=== PATIENT | female | born 1945 | race Caucasian/White ===

== ENCOUNTER → 2017-10-15 | Outpatient (CLI) | payer MEDICARE, OTHER ==
[~2017-10-15] MED LIST: AMLO-99 PO; ASPI-1471 PO; BECL8.7A6 IH; CALC600T72 PO; CALC625T57 PO; CET10 PO; CHOL200038 PO; CITA-156 PO; DULO60CA51 PO; DYA PO; FLAX100027 PO; GABA-503 PO; GLIM1TAB25 PO; GLUC500C29 PO; METF-411 PO; MOMR; MON10 PO; MULT1CAP41 PO; OMEG-11 PO; OMEG500C5 PO; OMEP40CA48 PO; OXYGENHOME INH; POT10 PO; PRAV20TA66 PO; PREOD OD; RABE20TA33 PO; TRAZ50 PO; UBID100C33 PO; VITA1CAP8 PO; VITA200C39 PO; ZINC50TA3 PO; [UNRECOGNIZED DRUG - CODE] PO; [UNRECOGNIZED DRUG - CODE] TP; [UNRECOGNIZED DRUG - OTHER]
--- NOTE | 2017-10-15 10:50 | RADIOLOGY IMAGING REPORT ---
FACILITY: [facility] PATIENT NAME: Ragini Moseley : 1945 MR: [id number] V: [id number] EXAM DATE: ORDERING PHYSICIAN: TOM MIRANDA TECHNOLOGIST: Location: [facility] Patient: Ragini Moseley : 1945 Visit/Account:[id number] Date of Sevice: 10/15/2017 DEXA Scan Clinical history: Screening. Comparison: DEXA scan from 09/04/2002. LUMBAR SPINE: The bone mineral density (BMD) measured from L1-L4 correlates with a Z-score of 2.8 and a T-score of 1.6 which is Normal as defined by the World Health Organization. The corresponding risk of fracture in the lumbar spine is Not increased compared with a young adult reference population. This value mena s increased by 9.1 % since the prior study. More than 5% change is considered significant. HIP: Bone mineral density (BMD) measured in the LEFT total hip region correlates with a Z-score -0.1 and a T-score of -1.3 which is osteopenia as defined by the World Health Organization. The corresponding risk of fracture in the hip is 2-3 times increased compared to a young adult reference population. Th is value has decreased by 26.2 % since the prior study. More than 5% change is considered significan t. T score left femoral neck -1.5 Bone mineral density (BMD) measured in the Femoral Neck region measures 0.825 g/cm?. IMPRESSION: 1. Lumbar spine: Normal. There has been 9.1% increase in the bone mineral density since the previou s exam. 2. Left Total Hip: Osteopenia. There has been 26.2% decrease in the bone mineral density since the previous exam. 3. Femoral Neck: Bone Mineral Density is 0.825 g/cm? The next DEXA scan of this patient should include the following sites: L1-L4 and the left hip. FRAX? WHO Fracture Risk Assessment Tool link: <http://www.shef.ac.uk/FRAX/tool.jsp?locationValue=9> PLEASE NOTE: 1) The World Health Organization defines low BMD as follows: T-score Normal > -1 Osteopenia < -1 and > -2.5 Osteoporosis < -2.5 without fractures Established osteoporosis < -2.5 with fractures 2) In general, you may wish to consider: Diagnosis Treatment Follow-up DEXA Normal BMD Prevention 2-3 years Osteopenia Prevention/therapy 1-2 years Osteoporosis Therapy Yearly 3) Fracture risk estimated from the T-score is more accurate for vertebral fractures (often spontane ous) than for hip fractures. Report Dictated By: Rhea Pimentel MD at 10/15/2017 10:39 AM Report E-Signed By: Rhea Pimentel MD at 10/15/2017 10:47 AM WSN:[email or web address]
== END ==
LOC: RAD 09:29
PROVIDERS: ATTEND Family Medicine
DX: Z13.820 Encounter for screening for osteoporosis (principal); M85.88 Other specified disorders of bone density and structure, other site
CPT/HCPCS: 77080

== ENCOUNTER → 2018-01-10 | Outpatient (CLI) | payer MEDICARE, OTHER ==
[~2018-01-10] MED LIST changes: +AMLO-113 PO; -AMLO-99 PO; -METF-411 PO; +METF-450 PO
--- NOTE | 2018-01-11 09:04 | RADIOLOGY IMAGING REPORT ---
FACILITY: [facility] PATIENT NAME: PAYAL FALK : [id number] MR: [id number] V: [id number] EXAM DATE: [id number] ORDERING PHYSICIAN: TOM MIRANDA TECHNOLOGIST: Tianna Vernon PROCEDURE:BILATERAL DIGITAL SCREENING MAMMOGRAM WITH CAD ASSISTED INTERPRETATION & 3D TOMOSYNTHESIS COMPARISON:Prior mammograms 01/07/17, 01/07/16, 01/02/15, 12/28/13, 12/20/12, 12/18/11. INDICATIONS:screening FINDINGS: A small amount of fibroglandular tissue is seen throughout the breasts. The parenchymal pattern has remained stable allowing for difference in mammographic technique & patient positioning. There is no evidence of malignant appearing mass, malignant appearing calcifications or other secondary sign of malignancy in either breast. DIAGNOSTIC CATEGORY 1--NEGATIVE. RECOMMENDATIONS: ROUTINE MAMMOGRAM AND CLINICAL EVALUATION. IMPRESSION: BIRADS 1: Negative. No significant abnormality is seen. Dictated by: Rhea Pimentel M.D. on 01/10/2018 at 16:39 Transcribed by: MARY on 01/11/2018 at 8:05 Approved by: Rhea Pimentel M.D. on 01/11/2018 at 9:03 [facility]
== END ==
LOC: MAMO 04:18
PROVIDERS: ATTEND Family Medicine
DX: Z12.31 Encounter for screening mammogram for malignant neoplasm of breast (principal)
CPT/HCPCS: 77063; 77067

== ENCOUNTER → 2018-08-31 | Outpatient (CLI) | payer MEDICARE, OTHER ==
[~2018-08-31] MED LIST changes: -AMLO-113 PO; +AMLO-127 PO; -GABA-503 PO; +GABA-533 PO
--- NOTE | 2018-08-31 14:38 | RADIOLOGY IMAGING REPORT ---
FACILITY: [facility] [place] PATIENT NAME: Ragini Moseley : 1945 MR: [id number] V: [id number] EXAM DATE: ORDERING PHYSICIAN: TOM MIRANDA TECHNOLOGIST: Location: [facility] [place] Patient: Ragini Moseley : 1945 Visit/Account:[id number] Date of Sevice: 08/31/2018 Exam type: US GROIN History: Right hip pain rule out hernia Comparison: Findings: Multiple images of the right groin were obtained both with and without a Valsalva maneuver. There ap peared to be protruding bowel extending into the right inguinal canal , very suspicious for a hernia. . Comparison views the left groin appeared unremarkable. Incidentally noted were multiple fatty rep laced lymph nodes in the right inguinal region. IMPRESSION: 1. There appear to be protruding bowel extending to the right inguinal canal upon Valsalva maneuver highly suspicious for right inguinal hernia. Incidentally noted are multiple fatty replaced lymph no amadou in the right groin. Report Dictated By: Rhea Pimentel MD at 08/31/2018 2:32 PM Report E-Signed By: Rhea Pimentel MD at 08/31/2018 2:35 PM WSN:AB
--- NOTE | 2018-08-31 15:07 | RADIOLOGY IMAGING REPORT ---
FACILITY: [facility] PATIENT NAME: Ragini Moseley : 1945 MR: [id number] V: [id number] EXAM DATE: ORDERING PHYSICIAN: TOM MIRANDA TECHNOLOGIST: Location: [facility] Patient: Ragini Moseley : 1945 Visit/Account:[id number] Date of Sevice: 08/31/2018 Exam type: PELVIS History: Pain in right hip and groin area starting two months previously Comparison: None. Findings: There is mild narrowing of the hip joint spaces, right greater than left. There is bony bridging bet ween the L5-S1 level and the superior aspect of the iliac crests bilaterally which may be degenerativ e in nature. No gross evidence of pelvic fracture. IMPRESSION: Degenerative changes as described above. Report Dictated By: Rhea Pimentel MD at 08/31/2018 11:56 AM Report E-Signed By: Rhea Pimentel MD at 08/31/2018 3:02 PM WSN:AB
== END ==
LOC: RAD 10:27
PROVIDERS: ATTEND Family Medicine
DX: M25.551 Pain in right hip (principal)
CPT/HCPCS: 72170; 76705

== ENCOUNTER → 2018-09-07 | Outpatient (CLI) | payer MEDICARE, OTHER ==
--- NOTE | 2018-09-07 14:46 | EKG ---
FACILITY: [facility] [place] PATIENT NAME: PAYAL FALK : [id number] MR: [id number] V: [id number] EXAM DATE: ORDERING PHYSICIAN: JOSI RICHARDSON TECHNOLOGIST: EMBER Test Reason : PREOP Blood Pressure : / mmHG Vent. Rate : 076 BPM Atrial Rate : 076 BPM P-R Int : 186 ms QRS Dur : 080 ms QT Int : 404 ms P-R-T Axes : 072 061 055 degrees QTc Int : 454 ms Normal sinus rhythm Low voltage QRS Borderline ECG No previous ECGs available Referred By: Confirmed By:
[2018-09-07 14:53] LABS: PLATELET COUNT, AUTOMATED 290 K/uL (150-450)
== END ==
LOC: LAB 14:18
PROVIDERS: ATTEND Surgery
DX: E11.9 Type 2 diabetes mellitus without complications (principal)
CPT/HCPCS: 36415; 82310; 82374; 82435; 82565; 82947; 83036; 84132; 84295; 84520; 85025

== ENCOUNTER 2018-09-27 00:37 | Day surgery (SDC) | payer MEDICARE, OTHER ==
[2018-09-27] VITALS (8 sets, daily range): BP systolic 109–131; BP diastolic 59–75
[~2018-09-27] VITALS: Ht 149.9 cm; Wt 75.7 kg
[~2018-09-27 00:37] MED LIST changes: +AREDS PO; +CELE-1 PO; +CHOL500045 PO; +EYELEA INJ; +FISH1CAP15 PO; +ROSU5TAB8 PO; +TRIA10.8; +UBID1CAP94 PO
[2018-09-27] MEDS ORDERED: NORMOSOL R SOLN(*) 1000 ML BAG 1,000 ML IV PRN (06:30)
[2018-09-27] MEDS ORDERED: MIDAZOLAM 2 MG/2 ML VIAL IVP PRN (06:30)
[2018-09-27] MEDS ORDERED: LIDOCAINE/SOD BICARB 8.4% SYR ID ONE (06:30)
[2018-09-27] MEDS ORDERED: ceFAZolin(*) 2GM/D5W 50ML 50 ML IVPB ONE (06:30)
[2018-09-27] MEDS ORDERED: BUPIVACAINE/EPI 0.5% 50ML VIAL INFIL ONE (06:50)
[2018-09-27] MEDS ORDERED: fentaNYL CITR 250 MCG/5 ML AMP ONE (07:04)
[2018-09-27] MEDS ORDERED: PROPOFOL EMUL(*) 10MG/ML 20 ML 20 ML ONE (07:05)
[2018-09-27] MEDS ORDERED: LIDOCAINE 2% IV 100 MG/5ML SYR ONE (07:06)
[2018-09-27] MEDS ORDERED: DEXAMETHASONE SOD 4 MG/ML VIAL ONE (07:18)
[2018-09-27] MEDS ORDERED: ONDANSETRON 4 MG/2 ML VIAL ONE (07:20)
[2018-09-27] MEDS ORDERED: KETAMINE HCL 200 MG/20 ML MDV ONE ×2 (07:21→08:20)
[2018-09-27] MEDS ORDERED: SUGAMMADEX SOD 200 MG/2 ML SDV ONE (07:22)
[2018-09-27] MEDS ORDERED: fentaNYL CITR 100 MCG/2 ML AMP ONE ×2 (09:18→10:03)
--- NOTE | 2018-09-27 11:31 | Post Operative Progress Note ---
Post Operative Progress Note Date: Sep 27, 2018 Time: 11:29 Surgeon: dr. christi turcios Anesthesia: gen, local dr. sandhu Pre-Op Diagnosis: right ing hernia Post-Op Diagnosis: same Procedure(s): robotic right ing hernia repair with mesh removal of right fallopian tube and ovary Specimen Removed:(May be N/A): right fallopian tube and ovary pelvic cyst Complications: none Estimated Blood Loss: minimal JOSI TURCIOS Sep 27, 2018 11:31
--- NOTE | 2018-09-27 12:04 | OPERATIVE REPORT 1 ---
EVENT DATE: September 27, 2018 SURGEON: Jack German MD ANESTHESIOLOGIST: David Moser MD ANESTHESIA: General and local. INTRAOPERATIVE CONSULT: Luis Helms DO, [employer] PROCEDURES PERFORMED 1. Right pelvic hernia repair with mesh robotically. 2. Removal of right fallopian tube and right ovary. 3. Excisional biopsy of pelvic cyst. FLUIDS IV crystalloid. ESTIMATED BLOOD LOSS Minimal. SPECIMENS 1. Right fallopian tube and ovary. 2. Pelvic cyst. COMPLICATIONS None. INDICATIONS This is a 73-year old female with a right inguinal hernia. On ultrasound, a right inguinal hernia was identified with small bowel contents. Risks and benefits of the procedure were explained and consent was signed. DESCRIPTION OF PROCEDURE The patient was taken to the operating room and placed in the supine position. General anesthesia was administered per the Anesthesia team. Patient was prepped and draped in normal sterile fashion. Local analgesia was injected into the dermis below the left costal margin and a small incision was made. OptiView technique was used to easily enter the abdomen. Pneumoperitoneum was achieved after injecting local analgesia under direct vision. Another 8 mm port was placed in the epigastric region as well as below the right costal margin. I inspected the abdomen. There was no injury upon entry. The robot was docked. There was no inguinal hernia on the left. On the right, the appendix was inspected and was within normal limits. On the right, there was no direct or indirect or femoral hernia. However, in the pelvis behind the right fallopian tube and ovary was a definitive hernia defect. A peritoneal flap was created with scissors. This was taken down to the level of the defect. Prior to completely reducing the hernia, there was a cyst that was attached between the tissue from the right ovary as well as the right colon. This was dissected free from the colon. Hemostasis was assured. It was not attached to the colon tissue, rather the fatty tissue around the colon. At this point, I consulted Dr. Luis Helms of [employer], who came into the operating room. The attachments of the cyst were then divided laterally and the cyst was removed. Hemostasis was assured. This was done with cautery scissors. The fallopian tube was preventing visualization and dissection of the hernia defect and, therefore, under the direction of Dr. Helms this was removed with cautery scissors. Prior to ending the procedure, in order to sew the defect, the right ovary need to be removed and this was done with a vessel sealer. The hernia was completely reduced. Hemostasis was assured. A 10 x 15 cm right sided ProGrip mesh was placed over the defect and made to lie flat. Peritoneal flap was reapproximated with a running V-Loc absorbable stitch. Peritoneal defects were then closed with another absorbable V-Loc running stitch. Hemostasis was assured. The right lower quadrant had been irrigated and suctioned. Ports were removed. Pneumoperitoneum was released. Final port was removed. All skin incisions were closed with 4-0 Monocryl subcuticular stitches. More local analgesia was injected. Appropriate dressings were applied. Patient tolerated the procedure well and there were no complications. LAKSHMI
--- NOTE | 2018-09-27 13:46 | NUR ---
1345 Discussed with pt how she is feeling. Pt states she feels she would be able to adequately manage her O2 sat at home. Pt stated she has a long tubed nasal canula to wear around the house and O2 atttachments for using her CPAP when she falls asleep. Pain is manageable. Pt stated, " I dont feel like I need to stay overnight". RN will discuss findings with Surgeon and process discharge information. Continue to Monitor.
--- NOTE | 2018-09-27 14:03 | Short(Outpt) Discharge Summary ---
Discharge Summary Reason for Hosp/Final Diag: (1) Inguinal hernia Hospital Course & Plan: pt presented for robotic right inguinal hernia repair with mesh. she tolerated the procedure well. she will be discharged home when criteria met. Departure Discharge to: Home Discharge Instructions Home Meds Reported Medications [Eyelea] No Conflict Check, 1 IVA INJ [id number] 09/22/18 [Areds] No Conflict Check, 1 TAB PO DAILY 09/22/18 Ubidecarenone/Vit E Acetate (CO Q-10 100 MG SOFTGEL) 1 Each Capsule, 1 EACH PO DAILY, CAPSULE 09/22/18 Celecoxib (CELEBREX) 200 Mg Capsule, 200 MG PO QDAY, CAPSULE 09/22/18 Triamcinolone Acetonide (Nasacort) 10.8 Ml [place], 1 SPRAY NA DAILY 09/22/18 Rosuvastatin Calcium (CRESTOR) 5 Mg Tablet, 5 MG PO QDAY 09/22/18 Fish Oil/Dha/Epa (FISH OIL 1,200 MG FISH OIL) 1 Each Capsule, 1 EACH PO DAILY, CAPSULE 09/22/18 Cholecalciferol (Vitamin D3) (VITAMIN D) 5,000 Unit Tablet, 5000 UNIT PO DAILY 09/22/18 Gabapentin (GABAPENTIN) 600 Mg Tablet, 600 MG PO TID 01/09/16 Amlodipine Besylate (AMLODIPINE BESYLATE) 10 Mg Tablet, 1 TAB PO QDAY, TAB 01/09/16 Metformin Hcl (METFORMIN HCL) 500 Mg Tablet, 1 TAB PO BID, TAB 01/09/16 Oxygen (OXYGEN) Inha, 3 L INH HS, L 01/09/16 Bacitracin/Pramoxine/Aloe Vera (BACITRAYCIN PLUS OINTMENT) 28 Gm Oint...g., 28 GM TP BID 01/09/16 Omeprazole (OMEPRAZOLE) 40 Mg Capsule.dr, 40 MG PO QDAY, CAP 01/09/16 Citalopram Hydrobromide (CELEXA) 20 Mg Tablet, 30 MG PO QDAY, #5 TAB 01/09/16 Montelukast Sodium (Singulair) 10 Mg Tab, 10 MG PO QDAY 04/13/07 Trazodone Hcl (Desyrel) 50 Mg Tab, 100 MG PO DAILY 04/13/07 Calcium Carbonate (Calcium) 600 Mg Tablet, 600 MG PO QDAY 06/17/06 Magnesium Oxide (Magnesium) 500 Mg Tablet, 500 MG PO DAILY 06/17/06 Glucosamine Sulfate (Glucosamine) 500 Mg Capsule, 1500 MG PO DAILY 06/17/06 Discontinued Reported Medications Pravastatin Sodium (PRAVASTATIN SODIUM) 20 Mg Tablet, 20 MG PO QDAY 01/09/16 Cholecalciferol (Vitamin D3) (VITAMIN D3) 2,000 Unit Tablet, 2000 UNIT PO BID 01/09/16 [place]-3 Fatty Acids (FISH OIL) 500 Mg Capsule.dr, 1200 MG PO BID 01/09/16 Diet: Regular Activity: No Heavy Lifting Special Instructions: no lifting more than 15 lbs for 2 wks. ok to shower tomorrow. take stool softener while taking pain meds. f/u dr. christi turcios 2 wks ([phone]). JOSI TURCIOS Sep 27, 2018 14:02
[2018-09-27] MEDS ORDERED: TRAM-420 PO (14:04)
== END 2018-09-27 12:15 | disposition home or self-care (01) ==
LOC: OR 00:37
PROVIDERS: ATTEND Surgery
DX: K40.90 Unilateral inguinal hernia, without obstruction or gangrene, not specified as recurrent (principal); N94.89 Other specified conditions associated with female genital organs and menstrual cycle; E11.9 Type 2 diabetes mellitus without complications
CPT/HCPCS: 36416; 49650; 58662; 82948; 88302; 88305; C1781; J1100; J2001; J2405; J2704; J3010; J3490; S2900; J0690

== ENCOUNTER → 2018-10-24 | Outpatient (CLI) | payer MEDICARE, OTHER ==
[~2018-10-24] MED LIST changes: +TRAM-420 PO
--- NOTE | 2018-10-24 17:01 | RADIOLOGY IMAGING REPORT ---
FACILITY: [facility] [place] PATIENT NAME: Ragini Moseley : 1945 MR: [id number] V: [id number] EXAM DATE: ORDERING PHYSICIAN: TOM MIRANDA TECHNOLOGIST: Location: [facility] [place] Patient: Ragini Moseley : 1945 Visit/Account:[id number] Date of Sevice: 10/24/2018 DEXA Scan Clinical history: Osteopenia. Comparison: DEXA scan from 10/15/2017. LUMBAR SPINE: The bone mineral density (BMD) measured from L1-L4 correlates with a Z-score of 3.4 and a T-score of 2.1 which is Normal as defined by the World Health Organization. The corresponding risk of fracture in the lumbar spine is Not increased compared with a young adult reference population. This value mena s increase by 4.3 % since the prior study. More than 5% change is considered significant. HIP: Bone mineral density (BMD) measured in the LEFT total hip region correlates with a Z-score -0.2 and a T-score of -1.5 which is osteopenia as defined by the World Health Organization. The corresponding risk of fracture in the hip is 3 times increased compared to a young adult reference population. This value has decrease by 3.1 % since the prior study. More than 5% change is considered significant. T score left femoral neck -1.7 Bone mineral density (BMD) measured in the Femoral Neck region measures 0.800 g/cm?. IMPRESSION: 1. Lumbar spine: Normal. There has been 4.3% increase in the bone mineral density since the previou s exam. 2. Left Total Hip: Osteopenia. There has been 3.1% decrease in the bone mineral density since the p revious exam. 3. Femoral Neck: Bone Mineral Density is 0.800 g/cm? The next DEXA scan of this patient should include the following sites: L1-L4 and the left hip. FRAX? WHO Fracture Risk Assessment Tool link: <http://www.shef.ac.uk/FRAX/tool.jsp?locationValue=9> PLEASE NOTE: 1) The World Health Organization defines low BMD as follows: T-score Normal > -1 Osteopenia < -1 and > -2.5 Osteoporosis < -2.5 without fractures Established osteoporosis < -2.5 with fractures 2) In general, you may wish to consider: Diagnosis Treatment Follow-up DEXA Normal BMD Prevention 2-3 years Osteopenia Prevention/therapy 1-2 years Osteoporosis Therapy Yearly 3) Fracture risk estimated from the T-score is more accurate for vertebral fractures (often spontane ous) than for hip fractures. Report Dictated By: Rhea Pimentel MD at 10/24/2018 4:54 PM Report E-Signed By: Rhea Pimentel MD at 10/24/2018 4:56 PM WSN:[email or web address]
== END ==
LOC: RAD 00:15
PROVIDERS: ATTEND Family Medicine
DX: M85.852 Other specified disorders of bone density and structure, left thigh (principal)
CPT/HCPCS: 77080